=== PATIENT | male | born 1985 | race Two or more races ===

== ENCOUNTER 2018-11-17 11:12 | Emergency (ER) | payer OTHER ==
[~2018-11-17] VITALS: Ht 172.7 cm; Wt 65.8 kg
[2018-11-17 11:27] VITALS: BP 141/70
[2018-11-17] MEDS ORDERED: PENICILLIN G BENZATHINE 2.4 MMU/4 ML ML IM ONE ×2 (12:00→12:25)
[2018-11-17] MEDS ORDERED: AZITHROMYCIN 250 MG TABLET PO ONE (12:00)
--- NOTE | 2018-11-17 12:18 | NUR ---
U/S TECH AT BEDSIDE FOR SCROTAL ULTRASOUND
[2018-11-17] MEDS ORDERED: AZITHROMYCIN 250 MG TABLET ONE (12:24)
[2018-11-17] MEDS ORDERED: CEFTRIAXONE 1 G VIAL IM ONE (13:00)
[2018-11-17] MEDS ORDERED: CEFTRIAXONE 500 MG VIAL ONE (13:41)
[2018-11-17] MEDS ORDERED: LIDOCAINE /MPF 1% VIAL 5 ML VIAL ONE (13:41)
--- NOTE | 2018-11-17 13:53 | NUR ---
PT. VERBALIZED UNDERSTANDING OF AFTERCARE INSTRUCTIONS.Patient discharged to home in stable condition. Written and verbal after care instructions given. Patient verbalizes understanding of instruction.
== END 2018-11-17 13:56 | disposition home or self-care (01) ==
LOC: ER 11:18
DX: Z11.3 Encounter for screening for infections with a predominantly sexual mode of transmission (principal); N45.1 Epididymitis; N45.2 Orchitis; Z88.2 Allergy status to sulfonamides; Z86.19 Personal history of other infectious and parasitic diseases
CPT/HCPCS: 76870; 86780; 87491; 87591; 96372; 99284; J0558; J0696; J3490; 36415